=== PATIENT | male | born 2000 | race Caucasian/White ===

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

== ENCOUNTER → 2024-07-17 | Outpatient (CLI) | payer OTHER ==
[~2024-07-17] MED LIST changes: +ABIL1TAB11 PO; +DEPA250T2 PO; +MONT5CHW10; -MONT5CHW9; +SERT25TA21 PO; +TRAZ-252 PO
== END ==
LOC: M OUTALCOH 12:55
PROVIDERS: ATTEND Psychiatry & Neurology Psychiatry
DX: F15.20 Other stimulant dependence, uncomplicated (principal); F17.200 Nicotine dependence, unspecified, uncomplicated

== ENCOUNTER 2024-07-31 15:53 | Outpatient (RCR) | payer OTHER | END 2024-08-06 | LOC: M OUTALCOH 15:53 | PROVIDERS: ATTEND Psychiatry & Neurology Psychiatry | DX: F15.20 Other stimulant dependence, uncomplicated (principal); F17.200 Nicotine dependence, unspecified, uncomplicated ==

== ENCOUNTER 2025-01-16 15:18 | Outpatient (RCR) | payer SELFPAY ==
[~2025-01-16 15:18] MED LIST changes: +DEPA250T PO; -DEPA250T2 PO
== END 2025-02-06 ==
LOC: M OUTALCOH 15:18
PROVIDERS: ATTEND Psychiatry & Neurology Psychiatry
DX: F15.20 Other stimulant dependence, uncomplicated (principal); F17.200 Nicotine dependence, unspecified, uncomplicated